=== PATIENT | female | born 1945 | race Caucasian/White ===

== ENCOUNTER → 2017-04-14 | Outpatient (CLI) | payer MEDICARE, OTHER | LOC: CARD 15:11 | PROVIDERS: ATTEND Internal Medicine Critical Care Medicine | DX: Z02.9 Encounter for administrative examinations, unspecified (principal) ==

== ENCOUNTER → 2017-04-23 | Outpatient (CLI) | payer MEDICARE, OTHER | END | disposition home or self-care (01) | LOC: CVU 06:55 | PROVIDERS: ATTEND Internal Medicine Cardiovascular Disease | DX: E78.00 Pure hypercholesterolemia, unspecified (principal); R03.0 Elevated blood-pressure reading, without diagnosis of hypertension; R60.0 Localized edema; I70.202 Unspecified atherosclerosis of native arteries of extremities, left leg; R20.0 Anesthesia of skin; Z85.3 Personal history of malignant neoplasm of breast; Z90.13 Acquired absence of bilateral breasts and nipples | CPT/HCPCS: 93306; 93922; 93925; 93970 ==

== ENCOUNTER → 2017-05-27 | Outpatient (CLI) | payer MEDICARE, OTHER | END | disposition home or self-care (01) | LOC: CVU 07:44 | PROVIDERS: ATTEND Internal Medicine Cardiovascular Disease | DX: I70.203 Unspecified atherosclerosis of native arteries of extremities, bilateral legs (principal); I87.2 Venous insufficiency (chronic) (peripheral) | CPT/HCPCS: 93978 ==

== ENCOUNTER → 2017-09-03 | Outpatient (CLI) | payer MEDICARE, OTHER ==
[~2017-09-03] MED LIST: ASPI-621 PO; ATOR10TA PO; CALC1CAP8 PO; CAPE500T24 PO; CBD DROPS; CLOP75TA52 PO; FURO-93 PO; MAGNESIUM; POTA20TA89 PO; [UNRECOGNIZED DRUG - REMARK]
== END | disposition home or self-care (01) ==
LOC: LAB 11:29
PROVIDERS: ATTEND Internal Medicine
DX: C78.02 Secondary malignant neoplasm of left lung (principal); C50.912 Malignant neoplasm of unspecified site of left female breast
CPT/HCPCS: 36415; 86300

== ENCOUNTER 2017-09-06 09:50 | Day surgery (SDC) | payer MEDICARE, OTHER ==
[2017-09-03 12:01] LABS: HEMATOCRIT 42.9 % (34.6-47.8); HEMOGLOBIN 14.4 g/dL (11.7-16.4); WHITE BLOOD COUNT 5.6 x10^3/uL (3.4-10)
[2017-09-03 12:13] LABS: BLOOD UREA NITROGEN 17 mg/dL (7-18)
[2017-09-03 12:19] LABS: ASPARTATE AMINO TRANSFERASE 16 U/L (15-37)
[~2017-09-06] VITALS: Ht 154.9 cm; Wt 71.0 kg
[~2017-09-06 09:50] MED LIST changes: -CBD DROPS; -[UNRECOGNIZED DRUG - REMARK]
[2017-09-06 10:20] VITALS: BP 138/84
[2017-09-06] MEDS ORDERED: CBD DROPS (10:25)
[2017-09-06] MEDS ORDERED: [UNRECOGNIZED DRUG - REMARK] (10:25)
[2017-09-06] MEDS ORDERED: SODIUM CHLORIDE 0.9% 1,000 ML IV SCH (11:39)
[2017-09-06] MEDS ORDERED: LIDOCAINE 2%, 20ML ONE (11:57)
[2017-09-06] MEDS ORDERED: FENTANYL PF 100 MCG/2ML ONE ×2 (12:05)
[2017-09-06] MEDS ORDERED: FLUMAZENIL 0.1 MG/1 ML, 5ML ONE (12:05)
[2017-09-06] MEDS ORDERED: MIDAZOLAM 1 MG/ML, 5ML ONE (12:05)
[2017-09-06] MEDS ORDERED: HEPARIN 1,000 UNITS/ML, 10ML ONE (12:06)
[2017-09-06] MEDS ORDERED: NALOXONE 1 MG/ML, 2ML ONE (12:06)
[2017-09-06] MEDS ORDERED: NITROGLYCERIN 5 MG/ML, 10ML ONE (12:06)
[2017-09-06] MEDS ORDERED: PROTAMINE SULFATE 10 MG/ML, 25ML ONE (12:06)
[2017-09-06] MEDS ORDERED: VISIPAQUE 270 MG/ML, 150ML BOTTLE ONE (13:00)
== END 2017-09-06 16:30 ==
LOC: OUT 09:50
PROVIDERS: ATTEND Internal Medicine
DX: I70.211 Atherosclerosis of native arteries of extremities with intermittent claudication, right leg (principal)
CPT/HCPCS: 36415; 37225; 75710; 80053; 85025; 99156; 99157; C1714; C1725; C1751; C1760; C1769; C1884; C1894; C2623; J1644; J2250; J3010; J3490; J7030; Q9966; J2720; J2310

== ENCOUNTER → 2018-04-28 | Outpatient (CLI) | payer MEDICARE, OTHER ==
[~2018-04-28] MED LIST changes: +ACET-1600 PO; +BIOT50002 PO; +CALCIUM PO; +CBD DROPS; +CEPH-367 PO; +DIGO125T PO; +MAGNESIUM PO; +[UNRECOGNIZED DRUG - CODE] IV; +[UNRECOGNIZED DRUG - REMARK]
== END | disposition home or self-care (01) ==
LOC: PETCFH 12:23
PROVIDERS: ATTEND Internal Medicine
DX: R91.1 Solitary pulmonary nodule (principal); C50.912 Malignant neoplasm of unspecified site of left female breast; Z79.82 Long term (current) use of aspirin
CPT/HCPCS: 78815; A9552